=== PATIENT | male | born 1990 | race Caucasian/White ===

== ENCOUNTER 2016-11-24 10:04 | Emergency (ER) | payer OTHER ==
[~2016-11-24] VITALS: Ht 193 cm; Wt 113.4 kg
[2016-11-24 10:11] VITALS: TEMP 36.7; Ht 193 cm; Wt 113.4 kg
--- NOTE | 2016-11-24 10:34 | DIAGNOSTIC IMAGING REPORT ---
Right third/middle finger 3 VIEWS CLINICAL HISTORY: Right middle finger pain. COMPARISON: None. DISCUSSION: No fractures or dislocations are visualized. No radiopaque foreign bodies are visualized. IMPRESSION: No bony abnormalities identified. Electronically signed by: Magdaleno Newman M.D. 11/24/2016 10:33 AM Dictated Date/Time: 11/24/2016 10:32 AM
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
[2016-11-24 11:19] VITALS: BP 129/82; PULSE 77; O2SAT 97
== END 2016-11-24 11:21 | disposition home or self-care (01) ==
LOC: C.EDB 10:05
DX: S69.91XA Unspecified injury of right wrist, hand and finger(s), initial encounter (principal); X58.XXXA Exposure to other specified factors, initial encounter; Y92.149 Unspecified place in prison as the place of occurrence of the external cause